=== PATIENT | female | born 1945 | race Caucasian/White ===

== ENCOUNTER 2020-10-15 03:34 | Inpatient (IN) | payer MEDICARE ==
[2020-10-15 04:21] LABS: Hemoglobin 12.4 g/dL (12.0-15.5); Mean Corpuscular HGB CONC 32.3 g/dL (32.0-36.0); Mean Corpuscular Hemoglobin 30.3 pg (27.0-33.0); Mean Corpuscular Volume 93.9 fl (81.6-98.3); Mean Platelet Volume 9.2 fl (7.4-10.4); Platelet Count 369 10x3/uL (150-450); RBC Distribution Width 13.4 % (11.5-14.5); Red Blood Cell (RBC) Count 4.09 10x6/uL (3.90-5.03)
[2020-10-15 04:34] LABS: ALT (SGPT) 47 U/L (8-55); AST (SGOT) 65 U/L (5-34); Albumin 3.1 g/dL (3.4-4.8); Alkaline Phosphatase 99 U/L (40-110); Anion Gap 14 mmol/L (10-20); BUN (Urea Nitrogen) 17 mg/dL (9.8-20.1); Bilirubin, Total 0.4 mg/dL (0.2-1.2); Calc. Creatinine Clearance 0 mL/min (70-130); Calcium 7.8 mg/dL (7.8-10.44); Carbon Dioxide 21 mmol/L (23-31); Chloride 106 mmol/L (98-107); Globulin 2.4 g/dL (2.4-3.5); Glucose 215 mg/dL (83-110); Potassium 4.4 mmol/L (3.5-5.1); Protein, Total 5.5 g/dL (5.8-8.1); Sodium 137 mmol/L (136-145)
[2020-10-15] MEDS ORDERED: Acetaminophen 325 MG TAB PO PRN (04:58)
[2020-10-15] MEDS ORDERED: Dextrose 5% in Water 1,000 ML IV PRN (04:58)
[2020-10-15] MEDS ORDERED: Calcium Carbonate 500 MG ChewTAB PO PRN (04:58)
[2020-10-15] MEDS ORDERED: HumaLOG 300 UNITS/3 ML VIAL SC PRN (04:58)
[2020-10-15] MEDS ORDERED: Guaifenesin DM 100-10/5 ML UDCUP PO PRN (04:58)
[2020-10-15] MEDS ORDERED: Senokot S 8.6-50 MG TAB PO PRN (04:58)
[2020-10-15] MEDS ORDERED: Ondansetron PF 4 MG/2 ML Vial IVP PRN (04:58)
[2020-10-15] MEDS ORDERED: Dextrose 50% Abboject 50 ML SYRINGE SLOW IVP PRN (04:58)
[2020-10-15] MEDS ORDERED: Nitroglycerin 2% Ointment 1 INCH/1 GM Packet ONE (05:02)
[2020-10-15 05:31] LABS: CKMB 32.5 ng/mL (0-6.6)
[2020-10-15 06:14] LABS: Band 15 % (5-11); Lymphocytes 4 % (21-51); Neutrophil 81 % (42-75)
[2020-10-15 06:15] LABS: Platelet Morphology Comment Appears Adequate
[2020-10-15 06:16] LABS: MDiff Complete? YES; Manual Diff?? YES; Platelet Clumps SLIGHT
[2020-10-15] MEDS ORDERED: Enoxaparin Sodium 60 MG/0.6 ML SYRINGE SC SCH (09:00)
[2020-10-15 09:12] LABS: CKMB 40.2 ng/mL (0-6.6)
[2020-10-15] MEDS ORDERED: Sodium Chloride 0.9% 500 ML IV SCH (09:15)
[2020-10-15] MEDS ORDERED: Nitroglycerin 2% Ointment 1 INCH/1 GM Packet TOP SCH (09:15)
[2020-10-15] MEDS ORDERED: Calcium Carbonate 600 MG + Vit D TAB PO SCH (09:15)
[2020-10-15] MEDS: Nitroglycerin 0.4 MG TAB (25 Tab Bottle) SL PRN ×3 (09:27→09:40)
[2020-10-15] MEDS ORDERED: Heparin 25,000 units/D5W 500 ML IVPB SCH (09:30)
[2020-10-15] MEDS ORDERED: Heparin 10,000 UNITS/ 10 ML VIAL SLOW IVP SCH (09:30)
[2020-10-15] MEDS ORDERED: Morphine 2 MG/ML VIAL SLOW IVP PRN (09:49)
[2020-10-15 09:58] LABS: Hemoglobin 12.2 g/dL (12.0-15.5); Platelet Count 367 10x3/uL (150-450)
[2020-10-15] MEDS ORDERED: Mometasone/Formoterol 200/5 60 PUFF INH SCH (10:00)
[2020-10-15 10:20] LABS: INR-International Normal Ratio 1.1; PTT 28.2 sec (22.0-33.0); Prothrombin Time 11.9 sec (9.5-12.1)
[2020-10-15] MEDS ORDERED: Nitroglycerin 50 MG/250 ML BOT 250 ML ONE (10:45)
[2020-10-15] MEDS ORDERED: Heparin 10,000 UNITS/ 10 ML VIAL ONE ×2 (10:45→13:03)
[2020-10-15] MEDS ORDERED: Adenosine 6 MG/2 ML VIAL ONE (10:46)
[2020-10-15] MEDS ORDERED: Midazolam HCl 2 mg/2 ml Vial ONE (10:46)
[2020-10-15] MEDS ORDERED: Fentanyl 100 MCG/2 ML VIAL ONE (10:46)
[2020-10-15] MEDS ORDERED: Sodium Chloride 0.9% 1,000 ML ONE (10:46)
[2020-10-15] MEDS ORDERED: Lidocaine 1% (PF) 30 ML VIAL ONE (10:52)
[2020-10-15 11:13] LABS: SARS-CoV-2 NAA Rapid Test DETECTED (NotDetected)
[2020-10-15] MEDS: Losartan 25 MG TAB PO SCH (11:20)
[2020-10-15] MEDS: Aspirin 81 mg Enteric Coated Tablet PO SCH (11:20)
[2020-10-15] MEDS: Cefdinir 300 MG CAP PO SCH ×2 (11:20→21:05)
[2020-10-15] MEDS: Metoprolol Tartrate 25 MG TAB PO SCH ×2 (11:20→21:06)
[2020-10-15] MEDS: valACYclovir 500 MG TAB PO SCH ×3 (11:20→21:06)
[2020-10-15] MEDS: methylPREDNISolone Sod Succ/PF 125 MG/2 ML VIAL IVP SCH ×2 (11:20→21:05)
[2020-10-15] MEDS: Multivitamin W/ Minerals 1 TAB PO SCH (11:20)
[2020-10-15] MEDS: Fluticasone Propionate Nasal Spray 16 gm Bottle NASAL SCH (11:29)
[2020-10-15] MEDS ORDERED: TICAGRELOR 90 MG TABLET ONE (12:25)
[2020-10-15] MEDS ORDERED: Protamine Sulfate 50 MG/5 ML VIAL ONE (13:28)
[2020-10-15] MEDS ORDERED: Zolpidem Tartrate 5 MG TAB PO PRN (15:07)
[2020-10-15] MEDS ORDERED: cloNIDine 0.1 MG TAB PO PRN (15:07)
[2020-10-15] MEDS ORDERED: Milk Of Magnesia 30 ML UDCUP PO PRN (15:07)
[2020-10-15] MEDS ORDERED: Mag-Al Plus 1200 MG/1200 MG/120 MG/30 ML UDCUP PO PRN (15:24)
[2020-10-15] MEDS: Calcium Carbonate 600 MG + Vit D TAB PO SCH (15:43)
[2020-10-15] MEDS: Mometasone/Formoterol 200/5 60 PUFF INH SCH (15:45)
[2020-10-15] MEDS: Sodium Chloride 0.9% 1,000 ML IV SCH (17:01)
[2020-10-15] MEDS ORDERED: Atorvastatin Calcium 10 MG TAB PO SCH (21:00)
[2020-10-15] MEDS: Atorvastatin Calcium 40 MG TAB PO SCH (21:05)
[2020-10-15] MEDS: TICAGRELOR 90 MG TABLET PO SCH (21:06)
[2020-10-16] MEDS: Sodium Chloride 0.9% 1,000 ML IV SCH (02:15)
[2020-10-16 06:39] LABS: Hemoglobin 9.7 g/dL (12.0-15.5); Mean Corpuscular HGB CONC 32.3 g/dL (32.0-36.0); Mean Corpuscular Hemoglobin 30.9 pg (27.0-33.0); Mean Corpuscular Volume 95.5 fl (81.6-98.3); Mean Platelet Volume 9.5 fl (7.4-10.4); Platelet Count 306 10x3/uL (150-450); RBC Distribution Width 13.6 % (11.5-14.5); Red Blood Cell (RBC) Count 3.14 10x6/uL (3.90-5.03); White Blood Cell (WBC) Count 24.1 10x3/uL (3.5-10.5)
[2020-10-16 07:13] LABS: Anion Gap 11 mmol/L (10-20); Cardiac Risk 3.6 (Less than 4.5); LDL Cholesterol, Calculated 60 mg/dL
[2020-10-16] MEDS: Mometasone/Formoterol 200/5 60 PUFF INH SCH ×2 (07:21→19:50)
[2020-10-16 08:01] LABS: BUN (Urea Nitrogen) 14 mg/dL (9.8-20.1); Calc. Creatinine Clearance 75 mL/min (70-130); Calcium 6.5 mg/dL (7.8-10.44); Carbon Dioxide 16 mmol/L (23-31); Chloride 117 mmol/L (98-107); Cholesterol 111 mg/dl (< 200 Desired); Glucose 115 mg/dL (83-110); HDL Cholesterol 31 mg/dL (>60 Neg Risk); Potassium 3.4 mmol/L (3.5-5.1); Sodium 141 mmol/L (136-145); Triglycerides 101 mg/dL (Less than 150)
[2020-10-16 08:10] LABS: MDiff Complete? YES
[2020-10-16 08:17] LABS: Lymphocytes 4 % (21-51); Monocytes 2 % (0-10); Neutrophil 94 % (42-75)
[2020-10-16 08:18] LABS: Platelet Morphology Comment Appears Adequate
[2020-10-16 08:41] LABS: RBC Morphology Normal
[2020-10-16] MEDS: Multivitamin W/ Minerals 1 TAB PO SCH (09:41)
[2020-10-16] MEDS: Losartan 25 MG TAB PO SCH (09:41)
[2020-10-16] MEDS: Metoprolol Tartrate 25 MG TAB PO SCH ×2 (09:41→20:06)
[2020-10-16] MEDS: Aspirin 81 mg Enteric Coated Tablet PO SCH (09:42)
[2020-10-16] MEDS: Cefdinir 300 MG CAP PO SCH ×2 (09:42→20:06)
[2020-10-16] MEDS: Calcium Carbonate 600 MG + Vit D TAB PO SCH ×2 (09:42→16:25)
[2020-10-16] MEDS: TICAGRELOR 90 MG TABLET PO SCH ×2 (09:43→20:07)
[2020-10-16] MEDS: methylPREDNISolone Sod Succ/PF 125 MG/2 ML VIAL IVP SCH (09:43)
[2020-10-16] MEDS: Fluticasone Propionate Nasal Spray 16 gm Bottle NASAL SCH (12:40)
[2020-10-16] MEDS: valACYclovir 500 MG TAB PO SCH ×3 (12:40→20:06)
[2020-10-16] MEDS: Atorvastatin Calcium 40 MG TAB PO SCH (20:06)
[2020-10-17 05:34] LABS: #Monocytes 1.3 10x3/uL (0.0-1.1); #Neutrophils 17.1 10x3/uL (1.5-8.4); %Basophils 0.1 % (0.0-2.0); %Lymphocytes 4.7 % (18.0-47.0); %Monocytes 6.5 % (0.0-10.0); %Neutrophils 87.8 % (40.0-75.0); Hemoglobin 9.4 g/dL (12.0-15.5); Mean Corpuscular HGB CONC 33.1 g/dL (32.0-36.0); Mean Corpuscular Hemoglobin 31.2 pg (27.0-33.0); Mean Corpuscular Volume 94.4 fl (81.6-98.3); Mean Platelet Volume 9.8 fl (7.4-10.4); Platelet Count 271 10x3/uL (150-450); RBC Distribution Width 13.8 % (11.5-14.5); Red Blood Cell (RBC) Count 3.01 10x6/uL (3.90-5.03); White Blood Cell (WBC) Count 19.5 10x3/uL (3.5-10.5)
[2020-10-17 05:43] LABS: Anion Gap 11 mmol/L (10-20)
[2020-10-17 05:51] LABS: BUN (Urea Nitrogen) 17 mg/dL (9.8-20.1); Calc. Creatinine Clearance 61 mL/min (70-130); Calcium 7.8 mg/dL (7.8-10.44); Carbon Dioxide 22 mmol/L (23-31); Chloride 113 mmol/L (98-107); Glucose 94 mg/dL (83-110); Potassium 3.8 mmol/L (3.5-5.1); Sodium 142 mmol/L (136-145)
[2020-10-17] MEDS: HYDROcodone/Acetaminophen 5/325 mg Tablet PO PRN ×2 (05:53→09:24)
[2020-10-17] MEDS: Mometasone/Formoterol 200/5 60 PUFF INH SCH ×2 (07:18→18:40)
[2020-10-17] MEDS ORDERED: methylPREDNISolone Sod Succ 40 MG VIAL IVP SCH (09:00)
[2020-10-17] MEDS: Calcium Carbonate 600 MG + Vit D TAB PO SCH ×2 (09:16→17:34)
[2020-10-17] MEDS: Multivitamin W/ Minerals 1 TAB PO SCH (09:16)
[2020-10-17] MEDS: Cefdinir 300 MG CAP PO SCH ×2 (09:16→22:10)
[2020-10-17] MEDS: Metoprolol Tartrate 25 MG TAB PO SCH ×2 (09:17→22:10)
[2020-10-17] MEDS: Losartan 25 MG TAB PO SCH (09:17)
[2020-10-17] MEDS: TICAGRELOR 90 MG TABLET PO SCH ×2 (09:17→22:10)
[2020-10-17] MEDS: Aspirin 81 mg Enteric Coated Tablet PO SCH (09:17)
[2020-10-17] MEDS: Fluticasone Propionate Nasal Spray 16 gm Bottle NASAL SCH (09:17)
[2020-10-17] MEDS: valACYclovir 500 MG TAB PO SCH ×3 (09:24→22:10)
[2020-10-17] MEDS: Atorvastatin Calcium 40 MG TAB PO SCH (22:10)
[2020-10-18] MEDS: HYDROcodone/Acetaminophen 5/325 mg Tablet PO PRN (01:55)
[2020-10-18 07:04] VITALS: TEMP 97.7
[2020-10-18 07:05] VITALS: BMI 22.2
[2020-10-18] MEDS ORDERED: predniSONE 20 MG TAB PO SCH (08:00)
[2020-10-18] MEDS ORDERED: metFORMIN 500 MG TAB PO SCH (08:00)
[2020-10-18] MEDS: Mometasone/Formoterol 200/5 60 PUFF INH SCH (08:07)
[2020-10-18 08:12] VITALS: BP 182/75
[2020-10-18] MEDS: Aspirin 81 mg Enteric Coated Tablet PO SCH (08:57)
[2020-10-18] MEDS: Losartan 25 MG TAB PO SCH (08:57)
[2020-10-18] MEDS: Multivitamin W/ Minerals 1 TAB PO SCH (08:57)
[2020-10-18] MEDS: valACYclovir 500 MG TAB PO SCH (08:57)
[2020-10-18] MEDS: Cefdinir 300 MG CAP PO SCH (08:57)
[2020-10-18] MEDS: Metoprolol Tartrate 25 MG TAB PO SCH (08:57)
[2020-10-18] MEDS: TICAGRELOR 90 MG TABLET PO SCH (08:58)
[2020-10-18] MEDS: Fluticasone Propionate Nasal Spray 16 gm Bottle NASAL SCH (08:58)
[2020-10-18] MEDS: Calcium Carbonate 600 MG + Vit D TAB PO SCH (08:58)
== END 2020-10-18 11:46 | disposition home or self-care (01) | DRG 247 ==
LOC: SUATTDRO 03:34 → CSHERS 03:34 → CSHTELE 08:12
PROVIDERS: ADMIT Internal Medicine; ATTEND Family Medicine
PROC: 027236Z Dilation of Coronary Artery, Three Arteries with Three Drug-eluting Intraluminal Devices, Percutaneous Approach (ICD-10-PCS; principal; 2020-10-15)
PROC: B241ZZ3 Ultrasonography of Multiple Coronary Arteries, Intravascular (ICD-10-PCS; 2020-10-15)
PROC: 4A023N7 Measurement of Cardiac Sampling and Pressure, Left Heart, Percutaneous Approach (ICD-10-PCS; 2020-10-15)
PROC: B2111ZZ Fluoroscopy of Multiple Coronary Arteries using Low Osmolar Contrast (ICD-10-PCS; 2020-10-15)
PROC: B2161ZZ Fluoroscopy of Right and Left Heart using Low Osmolar Contrast (ICD-10-PCS; 2020-10-15)
DX: I21.4 Non-ST elevation (NSTEMI) myocardial infarction (principal); J44.1 Chronic obstructive pulmonary disease with (acute) exacerbation; R65.10 Systemic inflammatory response syndrome (SIRS) of non-infectious origin without acute organ dysfunction; I25.110 Atherosclerotic heart disease of native coronary artery with unstable angina pectoris; Z86.16 Personal history of COVID-19; B02.9 Zoster without complications; K21.9 Gastro-esophageal reflux disease without esophagitis; F41.9 Anxiety disorder, unspecified; F32.9 Major depressive disorder, single episode, unspecified; E78.2 Mixed hyperlipidemia; I12.9 Hypertensive chronic kidney disease with stage 1 through stage 4 chronic kidney disease, or unspecified chronic kidney disease; N18.2 Chronic kidney disease, stage 2 (mild); J30.2 Other seasonal allergic rhinitis; Z90.49 Acquired absence of other specified parts of digestive tract; Z90.710 Acquired absence of both cervix and uterus; Z87.891 Personal history of nicotine dependence; Z83.3 Family history of diabetes mellitus; Z82.49 Family history of ischemic heart disease and other diseases of the circulatory system; Z82.3 Family history of stroke; Z98.49 Cataract extraction status, unspecified eye; Z79.82 Long term (current) use of aspirin; Z79.899 Other long term (current) drug therapy; Z88.1 Allergy status to other antibiotic agents; Z88.5 Allergy status to narcotic agent; Z88.8 Allergy status to other drugs, medicaments and biological substances; I70.203 Unspecified atherosclerosis of native arteries of extremities, bilateral legs; R73.9 Hyperglycemia, unspecified; R73.03 Prediabetes; D72.829 Elevated white blood cell count, unspecified
CPT/HCPCS: 36415; 36416; 80048; 80053; 80061; 82553; 83036; 83605; 84484; 85025; 85347; 85610; 85730; 92928; 92929; 92978; 92979; 93005; 93010; 93458; 94664; 94760; 99152; 99153; C1753; C1760; C1874; C1887; C9600; C9601; J0153; J1644; J1815; J2001; J2250; J2270; J2720; J2920; J2930; J3010; J7050; J7512; U0002

== ENCOUNTER 2021-06-15 23:40 | Emergency (ER) | payer MEDICARE ==
[2021-06-16 00:13] LABS: Hemoglobin 10.3 g/dL (12.0-15.5); Mean Corpuscular HGB CONC 31.1 g/dL (32.0-36.0); Mean Corpuscular Hemoglobin 29.9 pg (27.0-33.0); Mean Corpuscular Volume 95.9 fl (81.6-98.3); Mean Platelet Volume 9.2 fl (7.4-10.4); Platelet Count 239 10x3/uL (150-450); RBC Distribution Width 13.9 % (11.5-14.5); Red Blood Cell (RBC) Count 3.45 10x6/uL (3.90-5.03); White Blood Cell (WBC) Count 7.7 10x3/uL (3.5-10.5)
[2021-06-16 00:19] LABS: ALT (SGPT) 24 U/L (8-55); AST (SGOT) 27 U/L (5-34); Albumin 3.5 g/dL (3.4-4.8); Alkaline Phosphatase 112 U/L (40-110); Anion Gap 13 mmol/L (10-20); BUN (Urea Nitrogen) 20 mg/dL (9.8-20.1); Bilirubin, Total 0.8 mg/dL (0.2-1.2); Calc. Creatinine Clearance 0 mL/min (70-130); Calcium 8.8 mg/dL (7.8-10.44); Carbon Dioxide 25 mmol/L (23-31); Chloride 104 mmol/L (98-107); Globulin 3.4 g/dL (2.4-3.5); Glucose 117 mg/dL (83-110); Potassium 3.9 mmol/L (3.5-5.1); Protein, Total 6.9 g/dL (5.8-8.1); Sodium 138 mmol/L (136-145)
[2021-06-16 00:27] LABS: MDiff Complete? YES
[2021-06-16 00:32] LABS: Eosinophils 2 % (0-10); Lymphocytes 18 % (21-51); Monocytes 16 % (0-10); Neutrophil 64 % (42-75)
[2021-06-16 00:33] LABS: Platelet Morphology Comment Appears Adequate; RBC Morphology Normal
[2021-06-16 00:35] LABS: PTT 24.8 sec (22.0-33.0); Prothrombin Time 10.7 sec (9.5-12.1)
== END 2021-06-16 01:34 | disposition home or self-care (01) ==
LOC: CSHERS 23:40
DX: S30.1XXA Contusion of abdominal wall, initial encounter (principal); S70.12XA Contusion of left thigh, initial encounter; M96.841 Postprocedural hematoma of a musculoskeletal structure following other procedure; Z86.16 Personal history of COVID-19; I10 Essential (primary) hypertension; K21.9 Gastro-esophageal reflux disease without esophagitis; J44.9 Chronic obstructive pulmonary disease, unspecified; Z87.891 Personal history of nicotine dependence; Z79.82 Long term (current) use of aspirin; Z79.899 Other long term (current) drug therapy
CPT/HCPCS: 76936; 80053; 85025; 85610; 85730

== ENCOUNTER 2023-05-21 10:09 | Inpatient (IN) | payer MEDICARE ==
[~2023-05-21 10:09] MED LIST: Heparin 10,000 UNITS/ 10 ML VIAL ONE; Metoprolol Tartrate 5 MG/5 ML VIAL ONE; Nitroglycerin 50 MG/250 ML BOT ONE
[2023-05-21] MEDS ORDERED: fentaNYL 50 mcg/mL 1 mL Vial ONE ×2 (10:28→10:37)
[2023-05-21] MEDS ORDERED: Nitroglycerin 2% Ointment 1 INCH/1 GM Packet ONE (10:31)
[2023-05-21] MEDS ORDERED: Lidocaine 1% (PF) 30 ML VIAL ONE (10:33)
[2023-05-21] MEDS ORDERED: Heparin 10,000 UNITS/ 10 ML VIAL ONE (10:37)
[2023-05-21] MEDS ORDERED: Midazolam HCl 2 mg/2 ml Vial ONE (10:37)
[2023-05-21] MEDS ORDERED: Atropine Sulfate 1 mg/1 ml Vial ONE (10:38)
[2023-05-21] MEDS ORDERED: Adenosine 6 MG/2 ML VIAL ONE (10:38)
[2023-05-21] MEDS ORDERED: Nitroglycerin 50 MG/250 ML BOT 0 ML ONE (10:38)
[2023-05-21 10:47] LABS: #Basophils 0.1 10x3/uL (0.0-0.2); #Eosinphils 0.2 10x3/uL (0.0-0.5); #Monocytes 0.9 10x3/uL (0.0-1.1); %Basophils 0.4 % (0.0-2.0); %Eosinophils 1.4 % (0.0-6.0); %Lymphocytes 21.4 % (18.0-47.0); %Monocytes 7.9 % (0.0-10.0); %Neutrophils 68.4 % (40.0-75.0); Hematocrit 45.4 % (34.9-44.5); Hemoglobin 14.4 g/dL (12.0-15.5); Mean Corpuscular HGB CONC 31.7 g/dL (32.0-36.0); Mean Corpuscular Hemoglobin 29.9 pg (27.0-33.0); Mean Corpuscular Volume 94.4 fl (81.6-98.3); Mean Platelet Volume 9.8 fl (7.4-10.4); Platelet Count 203 10x3/uL (150-450); RBC Distribution Width 13.4 % (11.5-14.5); Red Blood Cell (RBC) Count 4.81 10x6/uL (3.90-5.03); White Blood Cell (WBC) Count 11.8 10x3/uL (3.5-10.5)
[2023-05-21] MEDS ORDERED: Ondansetron PF 4 MG/2 ML Vial ONE (10:47)
[2023-05-21] MEDS ORDERED: TICAGRELOR 90 MG TABLET ONE (10:47)
[2023-05-21 11:09] LABS: ALT (SGPT) 17 U/L (8-55); AST (SGOT) 30 U/L (5-34); Albumin 3.8 g/dL (3.4-4.8); Alkaline Phosphatase 123 U/L (40-110); Anion Gap 14 mmol/L (10-20); BUN (Urea Nitrogen) 17 mg/dL (9.8-20.1); Bilirubin, Total 0.4 mg/dL (0.2-1.2); Calc. Creatinine Clearance 0 mL/min (70-130); Carbon Dioxide 24 mmol/L (23-31); Chloride 105 mmol/L (98-107); Estimated GFR 63; Globulin 3.4 g/dL (2.4-3.5); Glucose 178 mg/dL (83-110); Potassium 4.4 mmol/L (3.5-5.1); Protein, Total 7.2 g/dL (5.8-8.1); Sodium 139 mmol/L (136-145)
[2023-05-21 11:12] LABS: Troponin I 0.105 ng/mL (< 0.028)
[2023-05-21] MEDS ORDERED: Metoprolol Tartrate 5 MG/5 ML VIAL ONE ×2 (11:19→11:22)
[2023-05-21] MEDS ORDERED: Metoprolol Tartrate 5 MG/5 ML VIAL IVP SCH (11:30)
[2023-05-21] MEDS ORDERED: Protamine Sulfate 50 MG/5 ML VIAL ONE (12:02)
[2023-05-21] MEDS ORDERED: Iopamidol 300 61% 100 ML VIAL FS ONE (12:33)
[2023-05-21] MEDS ORDERED: Mag-Al 1200 mg/1200 mg/30 ML UDCUP PO PRN (12:36)
[2023-05-21] MEDS ORDERED: cloNIDine 0.1 MG TAB PO PRN (12:36)
[2023-05-21] MEDS ORDERED: Milk Of Magnesia 30 ML UDCUP PO PRN (12:36)
[2023-05-21] MEDS ORDERED: Nitroglycerin 0.4 MG TAB (25 Tab Bottle) SL PRN (12:36)
[2023-05-21] MEDS ORDERED: Zolpidem Tartrate 5 MG TAB PO PRN (12:36)
[2023-05-21 13:06] VITALS: BMI 24.7
[2023-05-21] MEDS: Sodium Chloride 0.9% 1,000 ML IV SCH ×2 (13:18→23:24)
[2023-05-21] MEDS ORDERED: Morphine 4 MG/ML VIAL SLOW IVP PRN (13:57)
[2023-05-21] MEDS: Morphine 2 MG/ML VIAL SLOW IVP PRN ×2 (14:11→20:20)
[2023-05-21] MEDS ORDERED: Pantoprazole 40 MG VIAL IVP SCH (17:00)
[2023-05-21] MEDS: TICAGRELOR 90 MG TABLET PO SCH (20:05)
[2023-05-21] MEDS: Metoprolol Tartrate 25 MG TAB PO SCH (20:05)
[2023-05-21 20:08] LABS: Hemoglobin A1c 6.3 % (4.0-6.0)
[2023-05-21] MEDS ORDERED: Rosuvastatin 20 MG TAB PO SCH (21:00)
[2023-05-22 04:05] LABS: #Eosinphils 0.1 10x3/uL (0.0-0.5); #Monocytes 1.4 10x3/uL (0.0-1.1); #Neutrophils 8.4 10x3/uL (1.5-8.4); %Basophils 0.3 % (0.0-2.0); %Eosinophils 0.5 % (0.0-6.0); %Lymphocytes 18.5 % (18.0-47.0); %Monocytes 11.3 % (0.0-10.0); Hematocrit 36.8 % (34.9-44.5); Hemoglobin 11.7 g/dL (12.0-15.5); Mean Corpuscular HGB CONC 31.8 g/dL (32.0-36.0); Mean Corpuscular Hemoglobin 30.7 pg (27.0-33.0); Mean Corpuscular Volume 96.6 fl (81.6-98.3); Mean Platelet Volume 10.1 fl (7.4-10.4); Platelet Count 184 10x3/uL (150-450); RBC Distribution Width 13.3 % (11.5-14.5); Red Blood Cell (RBC) Count 3.81 10x6/uL (3.90-5.03); White Blood Cell (WBC) Count 12.2 10x3/uL (3.5-10.5)
[2023-05-22 04:10] LABS: ALT (SGPT) 59 U/L (8-55); AST (SGOT) 382 U/L (5-34); Albumin 3.1 g/dL (3.4-4.8); Alkaline Phosphatase 97 U/L (40-110); Anion Gap 11 mmol/L (10-20); BUN (Urea Nitrogen) 14 mg/dL (9.8-20.1); Bilirubin, Total 0.4 mg/dL (0.2-1.2); Calc. Creatinine Clearance 53 mL/min (70-130); Calcium 8.5 mg/dL (7.8-10.44); Carbon Dioxide 26 mmol/L (23-31); Cardiac Risk 2.3 (Less than 4.5); Chloride 107 mmol/L (98-107); Cholesterol 107 mg/dl (< 200 Desired); Estimated GFR 81; Globulin 2.7 g/dL (2.4-3.5); Glucose 114 mg/dL (83-110); HDL Cholesterol 46 mg/dL (>60 Neg Risk); LDL Cholesterol, Calculated 49 mg/dL; Potassium 4.2 mmol/L (3.5-5.1); Protein, Total 5.8 g/dL (5.8-8.1); Sodium 140 mmol/L (136-145); Triglycerides 62 mg/dL (Less than 150)
[2023-05-22 07:43] VITALS: BP 117/52; TEMP 98.3
[2023-05-22] MEDS: Metoprolol Tartrate 25 MG TAB PO SCH (08:04)
[2023-05-22] MEDS: TICAGRELOR 90 MG TABLET PO SCH (08:05)
[2023-05-22] MEDS ORDERED: Aspirin Chewable 81 MG TAB PO SCH (09:00)
[2023-05-22] MEDS ORDERED: Pantoprazole 40 MG VIAL IVP SCH (09:00)
[2023-05-22] MEDS ORDERED: Losartan 50 MG TAB PO SCH (09:00)
[2023-05-22] MEDS: Sodium Chloride 0.9% 1,000 ML IV SCH (09:31)
[2023-05-23] MEDS ORDERED: Losartan 50 MG TAB PO SCH (09:00)
== END 2023-05-22 14:42 | disposition home or self-care (01) | DRG 322 ==
LOC: CSHERS 10:09 → CSHCCL 11:37 → CSHIMCU 13:20
PROVIDERS: ADMIT Internal Medicine Cardiovascular Disease; ATTEND Internal Medicine Cardiovascular Disease
PROC: 4A023N7 Measurement of Cardiac Sampling and Pressure, Left Heart, Percutaneous Approach (ICD-10-PCS; principal; 2023-05-21)
PROC: 027034Z Dilation of Coronary Artery, One Artery with Drug-eluting Intraluminal Device, Percutaneous Approach (ICD-10-PCS; 2023-05-21)
PROC: 02703ZZ Dilation of Coronary Artery, One Artery, Percutaneous Approach (ICD-10-PCS; 2023-05-21)
PROC: 02C03ZZ Extirpation of Matter from Coronary Artery, One Artery, Percutaneous Approach (ICD-10-PCS; 2023-05-21)
PROC: B2111ZZ Fluoroscopy of Multiple Coronary Arteries using Low Osmolar Contrast (ICD-10-PCS; 2023-05-21)
PROC: B2151ZZ Fluoroscopy of Left Heart using Low Osmolar Contrast (ICD-10-PCS; 2023-05-21)
PROC: B241ZZ3 Ultrasonography of Multiple Coronary Arteries, Intravascular (ICD-10-PCS; 2023-05-21)
DX: I21.11 ST elevation (STEMI) myocardial infarction involving right coronary artery (principal); I25.10 Atherosclerotic heart disease of native coronary artery without angina pectoris; I49.3 Ventricular premature depolarization; J44.9 Chronic obstructive pulmonary disease, unspecified; I10 Essential (primary) hypertension; E78.5 Hyperlipidemia, unspecified; E73.9 Lactose intolerance, unspecified; F41.9 Anxiety disorder, unspecified; F32.A Depression, unspecified; K21.9 Gastro-esophageal reflux disease without esophagitis; Z90.710 Acquired absence of both cervix and uterus; Z90.49 Acquired absence of other specified parts of digestive tract; Z98.49 Cataract extraction status, unspecified eye; Z95.820 Peripheral vascular angioplasty status with implants and grafts; Z88.2 Allergy status to sulfonamides; Z88.5 Allergy status to narcotic agent; Z88.8 Allergy status to other drugs, medicaments and biological substances; Z79.899 Other long term (current) drug therapy; Z87.891 Personal history of nicotine dependence; Z95.5 Presence of coronary angioplasty implant and graft
CPT/HCPCS: 36415; 71045; 80053; 80061; 83036; 84484; 85025; 85347; 92921; 92941; 92978; 92979; 93005; 93010; 93458; 94762; 99152; 99153; C1753; C1760; C1769; C1876; C1887; C9113; C9606; J0153; J0461; J1644; J2001; J2250; J2272; J2405; J2720; J3010; J7050; Q9967